=== PATIENT | female | born 1970 | race Caucasian/White ===

== ENCOUNTER → 2016-08-26 | Day surgery (SDC) | payer OTHER ==
[2016-08-26 06:36] LABS: CREATININE 0.8 mg/dL (0.5-1.0); POTASSIUM 4.2 mmol/L (3.5-5.1)
== END | disposition home or self-care (01) ==
LOC: FAS 07:00
PROVIDERS: Anesthesiology
DX: M65.312 Trigger thumb, left thumb (principal); M75.41 Impingement syndrome of right shoulder; F32.9 Major depressive disorder, single episode, unspecified; F41.0 Panic disorder [episodic paroxysmal anxiety]; F17.210 Nicotine dependence, cigarettes, uncomplicated; Z90.710 Acquired absence of both cervix and uterus; Z90.49 Acquired absence of other specified parts of digestive tract
CPT/HCPCS: 36415; 80048; J2704; J3010

== ENCOUNTER → 2020-07-30 | Day surgery (SDC) | payer OTHER ==
[~2020-07-30] MED LIST: ABILIFY10 MG PO; ATARAX25 MG PO; CYMBALTA 30MG C30 MG PO; DULOXETINE HCL60 MG PO; EFFEXOR XR150 MG PO; ESTRACE1 MG PO; FLEXERIL10 MG PO; GABAPENTIN800 MG PO; IBUPROFEN800 MG PO; K-DUR20 MEQ PO; LIPITOR 10MG TA10 MG PO; MELOXICAM15 MG PO; MOBIC15 MG PO; NAPROXEN500 MG PO; NEURONTIN400 MG PO; NEURONTIN800 MG PO; OXYCODONE-ACET1 EACH PO; PERCOCET 10-321 EACH PO; PERCOCET 5-3251 EACH PO; PROGESTERONE100 MG PO; PROTONIX 40MG T40 MG PO; REQUIP1 MG PO; REXULTI0.5 MG PO; SEROQUEL 100MG100 MG PO; TOPROL XL 50 MG50 MG PO; VICODIN 10/3251 EACH PO; VITAMIN D-32000 UNI1 PO; ZOFRAN4 MG PO
[2020-07-30 08:10] LABS: HCT 36.3 % (37.0-47.0); MCH 31.3 pg (25.0-31.0); MCHC 33.1 g/dL (32.0-36.0); MCV 94.8 fL (78.0-100.0); MPV 11.1 fL (6.0-9.5); RBC 3.83 M/uL (4.20-5.40); WBC 10.1 K/uL (4.0-10.5)
[2020-07-30 08:21] LABS: ALBUMIN 3.2 g/dL (3.4-5.0); BILIRUBIN - TOTAL 0.1 mg/dL (0.2-1.0); CREATININE 0.75 mg/dL (0.51-0.95); GLOBULIN (CALCULATION) 3.6 g/dL; POTASSIUM 3.8 mmol/L (3.5-5.1); TOTAL PROTEIN 6.8 g/dL (6.4-8.2)
== END | disposition home or self-care (01) ==
LOC: FAS 06:44
PROVIDERS: Orthopaedic Surgery
DX: M75.02 Adhesive capsulitis of left shoulder (principal); M75.52 Bursitis of left shoulder; M75.42 Impingement syndrome of left shoulder; M19.012 Primary osteoarthritis, left shoulder; K21.9 Gastro-esophageal reflux disease without esophagitis; I10 Essential (primary) hypertension; Z20.822 Contact with and (suspected) exposure to COVID-19; Z88.8 Allergy status to other drugs, medicaments and biological substances; Z98.890 Other specified postprocedural states; Z79.899 Other long term (current) drug therapy
CPT/HCPCS: 36415; 80053; 97161; 97530-GP; J0171; J0690; J1100; J2250; J2405; J2704; J2710; J2795; J3010; J7120